=== PATIENT | male | born 1940 ===

== ENCOUNTER 2017-07-28 11:11 | Inpatient (IN) | payer OTHER ==
[~2017-07-28] VITALS: Ht 167.6 cm; Wt 96.6 kg
[2017-07-28] MEDS ORDERED: OMEPRAZOLE40 MG PO (11:42)
[2017-07-28] MEDS ORDERED: NORVASC10 MG PO (11:42)
[2017-07-28] MEDS ORDERED: ENALAPRIL MALEA20 MG PO (11:42)
[2017-07-28] MEDS ORDERED: GLIMEPIRIDE2 MG PO (11:43)
[2017-07-28] MEDS ORDERED: MELOXICAM15 MG PO (11:43)
[2017-07-28] MEDS ORDERED: MONTELUKAST SOD10 MG PO (11:44)
== END 2017-08-10 08:50 | disposition home or self-care (01) | DRG 331 ==
LOC: EDUNIT# 11:45 → SURH 08-04 09:28 → O/R 08-04 09:28 → SURG 08-04 11:00 → SURH 08-04 15:15
PROVIDERS: Colon & Rectal Surgery
PROC: 07TC4ZZ Resection of Pelvis Lymphatic, Percutaneous Endoscopic Approach (ICD-10-PCS; 2017-08-04)
PROC: 0DBU4ZZ Excision of Omentum, Percutaneous Endoscopic Approach (ICD-10-PCS; 2017-08-04)
PROC: 0DJD8ZZ Inspection of Lower Intestinal Tract, Via Natural or Artificial Opening Endoscopic (ICD-10-PCS; 2017-08-04)
PROC: 0DTN4ZZ Resection of Sigmoid Colon, Percutaneous Endoscopic Approach (ICD-10-PCS; principal; 2017-08-04 11:00)
DX: K57.32 Diverticulitis of large intestine without perforation or abscess without bleeding (principal); E11.65 Type 2 diabetes mellitus with hyperglycemia; I10 Essential (primary) hypertension

== ENCOUNTER → 2017-08-03 | Day surgery (SDC) | payer OTHER ==
[~2017-08-03] MED LIST: ENALAPRIL MALEA20 MG PO; GLIMEPIRIDE2 MG PO; MELOXICAM15 MG PO; MONTELUKAST SOD10 MG PO; NORVASC10 MG PO; OMEPRAZOLE40 MG PO
== END | disposition home or self-care (01) ==
LOC: ADM 07-28 12:15 → AMB-ENDOS 08:27
DX: C18.6 Malignant neoplasm of descending colon (principal); K64.1 Second degree hemorrhoids